=== PATIENT | male | born 2000 | race African-American/Black ===

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

== ENCOUNTER 2021-10-11 09:39 | Emergency (ER) | payer OTHER ==
[~2021-10-11] VITALS: Ht 172.7 cm; Wt 105.0 kg
[2021-10-11] MEDS ORDERED: KETOROLAC 15MG/ML VIAL IV ONE (10:00)
[2021-10-11] MEDS ORDERED: ASPIRIN 81MG TABLET PO ONE (10:00)
[2021-10-11 10:35] LABS: BASOPHILS % 0.5 % (0.0-2.0); EOSINOPHILS % 1.7 % (0.0-5.0); HEMATOCRIT. 38.9 % (42.0-52.0); HEMOGLOBIN. 13.2 g/dL (14.0-18.0); LYMPHOCYTES % 27.7 % (20.0-50.0); MEAN CORPUSCULAR HEMOGLOBIN 28.6 pg (28.0-32.0); MEAN CORPUSCULAR VOLUME 84.2 fL (80.0-94.0); MEAN PLATELET VOLUME 9.5 fl (7.4-10.4); MONOCYTES % 7.3 % (2.0-8.0); NEUTROPHILS % 62.8 % (40.0-76.0); PLATELET 284 x1000/uL (130-400); RED BLOOD CELL COUNT 4.62 mill/uL (4.7-6.1); RED CELL DISTRIBUTION WIDTH 14.6 % (11.6-14.6)
[2021-10-11 10:39] LABS: CHLORIDE 106 mEq/L (98-107)
[2021-10-11] MEDS ORDERED: KETOROLAC 15MG/ML VIAL IV NR (11:30)
[2021-10-11] MEDS ORDERED: ASPIRIN 81MG TABLET PO NR (11:30)
[2021-10-11 11:48] VITALS: BP 139/74
== END 2021-10-11 16:19 | disposition home or self-care (01) ==
LOC: ER 09:39
DX: R07.89 Other chest pain (principal)
CPT/HCPCS: 36415; 71045; 80053; 83880; 84484; 85025; 93005; 96374; 99285; J1885

== ENCOUNTER 2021-11-27 22:48 | Emergency (ER) | payer OTHER ==
[~2021-11-27] VITALS: Ht 180.3 cm; Wt 124.3 kg
[2021-11-27 22:52] VITALS: BP 141/81
== END 2021-11-28 03:05 | disposition home or self-care (01) ==
LOC: ER 22:48
DX: R07.89 Other chest pain (principal); R03.0 Elevated blood-pressure reading, without diagnosis of hypertension
CPT/HCPCS: 71045; 93005; 99283

== ENCOUNTER 2021-12-22 00:39 | Emergency (ER) | payer OTHER ==
[~2021-12-22] VITALS: Ht 177.8 cm; Wt 126.0 kg
[2021-12-22 05:18] VITALS: BP 128/62
== END 2021-12-22 05:18 | disposition home or self-care (01) ==
LOC: ER 00:39
DX: R06.00 Dyspnea, unspecified (principal); R03.0 Elevated blood-pressure reading, without diagnosis of hypertension
CPT/HCPCS: 71045; 93005; 99283

== ENCOUNTER 2021-12-23 11:21 | Emergency (ER) | payer OTHER ==
[~2021-12-23] VITALS: Ht 177.8 cm; Wt 126.0 kg
[2021-12-23 11:25] VITALS: BP 144/76
[2021-12-23 14:56] LABS: BASOPHILS % 0.8 % (0.0-2.0); EOSINOPHILS % 1.4 % (0.0-5.0); HEMOGLOBIN. 13.8 g/dL (14.0-18.0); LYMPHOCYTES % 22.3 % (20.0-50.0); MEAN CORPUSCULAR HEMOGLOBIN 28.4 pg (28.0-32.0); MEAN CORPUSCULAR VOLUME 84.8 fL (80.0-94.0); MEAN PLATELET VOLUME 9.4 fl (7.4-10.4); MONOCYTES % 6.9 % (2.0-8.0); NEUTROPHILS % 68.6 % (40.0-76.0); PLATELET 317 x1000/uL (130-400); RED BLOOD CELL COUNT 4.84 mill/uL (4.7-6.1); RED CELL DISTRIBUTION WIDTH 14.9 % (11.6-14.6)
[2021-12-23 15:03] LABS: CHLORIDE 102 mEq/L (98-107)
== END 2021-12-23 17:42 | disposition home or self-care (01) ==
LOC: ER 11:35
DX: R06.02 Shortness of breath (principal); R42 Dizziness and giddiness; R53.1 Weakness
CPT/HCPCS: 36415; 80053; 85025; 93005; 99284